=== PATIENT | female | born 1970 | race Caucasian/White ===

== ENCOUNTER 2017-11-03 10:00 | Emergency (ER) | payer BC ==
[~2017-11-03] VITALS: Ht 167.6 cm; Wt 90.9 kg
[2017-11-03 10:33] LABS: BASOPHILS % (AUTO) 0.5 % (0-1); EOSINOPHILS # (AUTO) 0.3 X10'3 (0-0.9); HEMATOCRIT 40.4 % (35.0-45.0); HEMOGLOBIN 13.8 g/dl (12.0-16.0); LYMPHOCYTES # (AUTO) 2.1 X10'3 (1.1-4.8); LYMPHOCYTES % (AUTO) 30.4 % (21-51); MEAN CORPUSCULAR HEMOGLOBIN 29.2 PG (27.0-31.0); MEAN CORPUSCULAR HGB CONC 34.1 % (33.0-36.5); MEAN CORPUSCULAR VOLUME 85.7 FL (78-98); MEAN PLATELET VOLUME 9.7 FL (7.4-10.4); MONOCYTES # (AUTO) 0.7 X10'3 (0-0.9); MONOCYTES % (AUTO) 9.4 % (2-12); NEUTROPHILS # (AUTO) 3.9 X10'3 (1.8-7.7); NEUTROPHILS % (AUTO) 55.7 % (42-75); PLATELET COUNT 286 X10'3 (140-440); RED BLOOD COUNT 4.71 X10'6 (4.20-5.60); RED CELL DISTRIBUTION WIDTH 13.3 % (11.5-14.5); WHITE BLOOD COUNT 6.9 X10'3 (4.5-11.0)
[2017-11-03 10:42] LABS: INR 0.9 INR; PARTIAL THROMBOPLASTIN TIME 24 SECONDS (22-32); PROTHROMBIN TIME 9.7 SECONDS (9.0-12.0)
[2017-11-03 10:49] LABS: ALANINE AMINOTRANSFERASE 28 U/L (12-78); ALBUMIN 3.7 G/DL (3.4-5.0); ALKALINE PHOSPHATASE 81 IU/L (46-116); ANION GAP 8 (8-16); ASPARTATE AMINO TRANSFERASE 16 U/L (10-37); BILIRUBIN,TOTAL 0.2 MG/DL (0.1-1.0); BLOOD UREA NITROGEN 12 MG/DL (7-18); BUN/CREATININE RATIO 14.3 (6.6-38.0); CALCIUM 9.5 MG/DL (8.5-10.1); CHLORIDE 104 MMOL/L (99-107); CREATININE 0.84 MG/DL (0.40-0.90); GLUCOSE 121 MG/DL (70-104); POTASSIUM 3.8 MMOL/L (3.5-5.1); SODIUM 140 MMOL/L (135-145); TOTAL CARBON DIOXIDE 28.1 MMOL/L (24-32); TOTAL PROTEIN 7.5 G/DL (6.4-8.2); eGFR 73 ML/MIN
[2017-11-03] MEDS ORDERED: ketorolac trometh. 30mg/ml inj. IV ONE (11:00)
[2017-11-03] MEDS ORDERED: diphenhydrAMINE 50 mg/ml inj IV ONE (11:00)
[2017-11-03] MEDS ORDERED: metoclopramide 5 mg/ml inj IV ONE (11:00)
[2017-11-03] MEDS ORDERED: LORazepam 2 mg/ml vial IV ONE (11:00)
[2017-11-03] MEDS ORDERED: normal saline 1000ML IV soln IVB ONE (11:00)
[2017-11-03] MEDS ORDERED: iohexol 350MG/ML 100ml bottle IV ONE (12:22)
[2017-11-03] MEDS ORDERED: ENAL10TA78 PO (12:28)
[2017-11-03] MEDS ORDERED: ATOR20TA PO (12:28)
[2017-11-03] MEDS ORDERED: LORA1TAB PO (13:57)
[2017-11-03 14:08] VITALS: BP 135/83
== END 2017-11-03 14:11 | disposition home or self-care (01) ==
LOC: ER 10:01
DX: R51 Headache (principal); R11.0 Nausea; Z98.890 Other specified postprocedural states; Z98.51 Tubal ligation status; Z88.8 Allergy status to other drugs, medicaments and biological substances; Z95.0 Presence of cardiac pacemaker
CPT/HCPCS: 36415; 70450; 71045; 71275; 80053; 84484; 85025; 85610; 85651; 85730; 86140; 93005; 96361; 96374; 96375; 99285; J1200; J1885; J2060; J2765; J7030; Q9967